=== PATIENT | male | born 1995 | race Caucasian/White ===

== ENCOUNTER 2019-09-03 13:44 | Inpatient (IN) | payer MEDICAID ==
[~2019-09-03] VITALS: Ht 165.1 cm; Wt 57.6 kg
--- NOTE | 2019-09-03 13:44 | NUR ---
PT ANNA ALS AND PLACED IN BED 4.
[2019-09-03 13:58] VITALS: BP 107/89
[2019-09-03] MEDS ORDERED: NACL 0.9% 1,000 ML IV ONE (14:10)
--- NOTE | 2019-09-03 14:15 | NUR ---
PATIENT PRESENTS TO ED WITH C/O CP AND SOB X1 DAY. PT DESCRIBES CP SQUEEZING @ 6/10 PAIN. DENIES N/V/D; SKIN IS PINK/WARM/DRY; AAOX4 WITH EVEN AND STEADY GAIT; LUNGS CLEAR BL; HR @ 105 BPM; PT DENIES ANY FEVER, OR COUGH AT THIS TIME; PATIENT STATES CHEST PAIN OF 6/10 AT THIS TIME; PATIENT POSITIONED FOR COMFORT; HOB ELEVATED; BEDRAILS UP X2; BED DOWN. ER SAW PT.
--- NOTE | 2019-09-03 15:04 | NUR ---
LAB AT BEDSIDE
[2019-09-03 15:22] LABS: BASOPHILS % (AUTO) 0.2 % (0.0-2.0); EOSINOPHILS % (AUTO) 0.3 % (0.0-4.0); HEMATOCRIT 47.9 % (36-52); HEMOGLOBIN 16.5 g/dL (12.0-18.0); LYMPHOCYTES % (AUTO) 8.9 % (20.5-51.1); MEAN CORPUSCULAR HEMOGLOBIN 31 pg (27-31); MEAN CORPUSCULAR HGB CONC 35 g/dL (33-37); MONOCYTES # (AUTO) 0.8 K/uL (0.8-1.0); MONOCYTES % (AUTO) 6.9 % (1.7-9.3); NEUTROPHILS # (AUTO) 9.7 K/uL (1.8-7.7); NEUTROPHILS % (AUTO) 83.7 % (42.2-75.2); PLATELET COUNT (AUTO) 219 K/uL (140-450); RED BLOOD CELL COUNT(AUTO) 5.38 MIL/uL (4.20-6.10); RED CELL DISTRIBUTION WIDTH 13.5 % (11.6-13.7); WHITE BLOOD COUNT (AUTO) 11.6 K/uL (4.8-10.8)
[2019-09-03 15:25] LABS: ANION GAP 16.4 (8-16); POTASSIUM 3.4 mmol/L (3.5-5.1)
[2019-09-03 15:31] LABS: ALBUMIN 4.8 g/dL (3.4-5.0); TOTAL BILIRUBIN 0.7 mg/dL (0.0-1.0)
[2019-09-03] MEDS ORDERED: MORPHINE SULFATE 4 MG/ML SYR IVP ONE ×2 (17:25→18:40)
[2019-09-03] MEDS ORDERED: LORazepam 2 MG/ML VIAL IVP ONE ×2 (17:25→18:00)
[2019-09-03] MEDS ORDERED: ACETAMINOPHEN 325 MG TAB PO PRN (18:05)
[2019-09-03] MEDS ORDERED: DOCUSATE SODIUM 100 MG GELCAP PO PRN (18:05)
[2019-09-03] MEDS ORDERED: HYDROcodone/APAP 7.5/325 MG 1 TAB PO PRN (18:05)
[2019-09-03] MEDS ORDERED: MORPHINE SULFATE 2 MG/ML SYR IVP PRN (18:05)
[2019-09-03] MEDS ORDERED: ONDANSETRON 4 MG/2 ML VIAL IM/IVP PRN (18:05)
--- NOTE | 2019-09-03 18:26 | NUR ---
PT UNABLE TO PRODUCE URINE AT THIS TIME.
[2019-09-03] MEDS ORDERED: NITROGLYCERIN 0.4 MG TAB SL PRN (18:40)
[2019-09-03 18:45] LABS: MAGNESIUM 1.5 mg/dL (1.8-2.4); THYROID STIMULATING HORMONE 3.11 uIU/mL (0.34-3.74)
[2019-09-03 19:08] LABS: PROTHROMBIN TIME 10.2 secs (10.8-13.4)
--- NOTE | 2019-09-03 19:15 | NUR ---
PT LEFT TO CT VIA W/C
[2019-09-03 19:26] LABS: BARBITURATE, URINE NEG. ng/ml (NEG <=200); BENZODIAZEPINE, URINE NEG. ng/mL (NEG <=200); CANNABINOID, URINE NEG. ng/mL (NEG <=50); COCAINE, URINE NEG. ng/mL (NEG <=300); OPIATE, URINE POS. ng/mL (NEG <=2000); PHENCYCLIDINE SCREEN,URINE NEG. ng/mL (NEG <=25)
--- NOTE | 2019-09-03 19:38 | NUR ---
REPORT GIVEN TO JEROMY BURCH. ALL CARE TRANSFERRED AT THIS TIME.
[2019-09-03] MEDS ORDERED: MAG SULF 2000 MG/WATER PREMIX 100 ML IV SCH (20:00)
--- NOTE | 2019-09-03 20:00 | NUR ---
PT RESTING IN BED. VSS. WILL CONTINUE TO MONITOR.
--- NOTE | 2019-09-03 20:39 | NUR ---
PT ARRIVED AT UNIT VIA GURNEY, AMBULATED TO BED, TOLERATED WELL, REPORT RECEIVED FROM ED NURSE MARCIN RN, PT BELONGINGS CHECKED, PT ON ROOM AIR, NO SOB NOTED, IV TO L AC 22G PATENT INTACT, SL, PT STATED HAVING TOLERABLE PAIN AT THIS MOMENT, ORIENT PT TO ROOM, BED, CALL LIGHT, PT FAMILY AT BEDSIDE, INITIAL ASSESSMENT DONE, ALL SAFETY PRECAUTION MET, CALL LIGHT WITHIN REACH, WILL CONTINUE TO MONITOR.
--- NOTE | 2019-09-03 20:40 | NUR ---
TRANSFER OF CARE AND REPORT GIVEN TO JEROMY CHENG
--- NOTE | 2019-09-03 20:42 | NUR ---
Patient will be admitted to care of DR. CARDOSO. Admited to TELEMETRY. Will go to room 125A. Belongings list completed. Report to JEROMY CHENG.
[2019-09-03 21:00] VITALS: BP 139/83
[2019-09-03] MEDS: METOPROLOL 25 MG TAB PO SCH (21:32)
--- NOTE | 2019-09-03 21:32 | NUR ---
DUE MEDICATION ADMINISTERED, PT STATED HAVING CHEST PAIN 5/10, MEDICATION PER DR ORDERED ADMINISTERED, PT TOLERATED WELL, PT RESTING, NO DISTRESS NOTED, CALL LIGHT WITHIN REACH, WILL CONTINUE TO MONITOR.
[2019-09-03] MEDS: NACL 0.9% 1,000 ML IV SCH (21:43)
[2019-09-03] MEDS ORDERED: INFLUENZA VACCINE QUAD 0.5 ML SYR IMVAC PRN (22:20)
--- NOTE | 2019-09-03 23:16 | NUR ---
PT RESTING, V/S TAKEN, WNL, CALL LIGHT WITHIN REACH, WILL CONTINUE TO MONITO.
[2019-09-03 23:55] LABS: APPEARANCE,URINE CLEAR (CLEAR); BILIRUBIN,URINE NEGATIVE (NEGATIVE); BLOOD, URINE NEGATIVE (NEGATIVE); COLOR,URINE YELLOW (YELLOW); LEUKOCYTE ESTERASE ,URINE NEGATIVE (NEGATIVE); NITRITE, URINE NEGATIVE (NEGATIVE); UGLUCOSE NEGATIVE (NEGATIVE)
[2019-09-04] VITALS: BP 137/73
--- NOTE | 2019-09-04 01:56 | NUR ---
PT STATED HAVING TROUBLE SLEEPING, DR. GOODRICH NOTIFIED PT STATED WANTS TO TAKE SOMETHING TO HELP HIM SLEEP, MEDICATION PER DR ORDERED ADMINISTERED, PT TOLERATED WELL, NO DISTRESS NOTED, CALL LIGHT WITHIN REACH, WILL CONTINUE TO MONITOR.
[2019-09-04] MEDS ORDERED: ZOLPIDEM 10 MG TAB PO SCH (02:00)
[2019-09-04 04:00] VITALS: BP 107/63
[2019-09-04] MEDS: NACL 0.9% 1,000 ML IV SCH ×2 (04:02→12:35)
--- NOTE | 2019-09-04 04:18 | NUR ---
PT SLEEPING, NO DISTRESS NOTED, V/S TAKEN, WNL, CALL LIGHT WITHIN REACH, WILL CONTINUE TO MONITOR.
[2019-09-04 06:55] LABS: BASOPHILS % (AUTO) 0.2 % (0.0-2.0); EOSINOPHILS # (AUTO) 0.1 K/uL (0-0.4); EOSINOPHILS % (AUTO) 1.5 % (0.0-4.0); HEMATOCRIT 45.4 % (36-52); HEMOGLOBIN 15.6 g/dL (12.0-18.0); LYMPHOCYTES # (AUTO) 1.5 K/uL (2.0-11.5); LYMPHOCYTES % (AUTO) 18.5 % (20.5-51.1); MEAN CORPUSCULAR HEMOGLOBIN 31 pg (27-31); MEAN CORPUSCULAR HGB CONC 34 g/dL (33-37); MEAN CORPUSCULAR VOLUME 90.8 fL (80-94); MONOCYTES # (AUTO) 0.6 K/uL (0.8-1.0); MONOCYTES % (AUTO) 8.1 % (1.7-9.3); NEUTROPHILS # (AUTO) 5.6 K/uL (1.8-7.7); NEUTROPHILS % (AUTO) 71.7 % (42.2-75.2); PLATELET COUNT (AUTO) 160 K/uL (140-450); RED CELL DISTRIBUTION WIDTH 14.2 % (11.6-13.7); WHITE BLOOD COUNT (AUTO) 7.9 K/uL (4.8-10.8)
[2019-09-04 07:14] LABS: ANION GAP 12.8 (8-16); CARBON DIOXIDE 27.3 mmol/L (21-32); CREATININE 0.9 mg/dL (0.7-1.3); POTASSIUM 4.1 mmol/L (3.5-5.1)
--- NOTE | 2019-09-04 07:18 | NUR ---
RECEIVED BEDSIDE REPORT FROM FUEL EFFICIENT AUTOMOBILE DESIGNER NURSE. PT IS AWAKE AND ALERT, NO C/O CHEST PAIN OR SOB. PT IS ON ROOM AIR, SKIN INTACT. IV SITE L AC 22 G, INFUSING NS 100 ML/HR. PT IS AMBULATORY AND ABLE TO MAKE NEEDS KNOWN. CALL LIGHT WITHIN REACH. WILL CONTINUE TO MONITOR.
--- NOTE | 2019-09-04 07:21 | NUR ---
ENDORSED PT TO DAY SHIFT NURSE BASHIR RN, PT STABLE, NO DISTRESS NOTED, CALL LIGHT WITHIN REACH.
[2019-09-04 07:22] LABS: MAGNESIUM 2.4 mg/dL (1.8-2.4); PHOSPHORUS 3.9 mg/dL (2.5-4.9)
[2019-09-04 07:23] LABS: CHOL/HDL RATIO 3.4 (1-4.5)
[2019-09-04 08:00] VITALS: BP 135/85
--- NOTE | 2019-09-04 08:53 | NUR ---
PT C/O CHEST PAIN AND SOB, VS CHECKED, ALL STABLE, O2 SAT IS 100% ON RA, BP ELEVATED AT 149/86, UP FROM 135/[address] CATALAN ASSESSED THE PT, SHE BELIEVES IT'S RELATED TO ALCOHOL WITHDRAWAL ANXIETY. WILL CONTINUE TO MONITOR THE PT. ROUTE CLERK CONSULT ALSO PENDING.
[2019-09-04] MEDS: chlordiazePOXIDE 25 MG CAP PO SCH ×3 (09:10→17:33)
[2019-09-04] MEDS: ASPIRIN 81 MG TAB.CHEW PO SCH (09:10)
[2019-09-04] MEDS: LORazepam 1 MG TAB PO PRN ×2 (09:11→21:47)
[2019-09-04] MEDS: THIAMINE 100 MG TAB PO SCH (09:11)
[2019-09-04] MEDS: LISINOPRIL 5 MG TAB PO SCH (09:11)
[2019-09-04] MEDS: FOLIC ACID 1 MG TAB PO SCH (09:11)
[2019-09-04] MEDS: ATORVASTATIN 20 MG TAB PO SCH (09:12)
[2019-09-04] MEDS: METOPROLOL 25 MG TAB PO SCH ×2 (09:12→20:42)
[2019-09-04] MEDS: MULTIVITAMIN 1 TAB PO SCH (09:12)
--- NOTE | 2019-09-04 09:24 | NUR ---
AM MEDS ADMINISTERED, PT TOLERATED WELL, ADMINISTERED THE PRN ATIVAN FOR ANXIETY. PT'S RELATIVES VISITING AT BEDSIDE.
[2019-09-04 12:00] VITALS: BP 112/66
--- NOTE | 2019-09-04 14:56 | NUR ---
DC [age] YRS OLD MALE WAS ADMITTED FROM HOME A/OX4 WITH A DX OF CHEST PAIN . PT HAS NO MEDICAL HX . USING METH AND DRINKING ALCOHOL. ELEVATED TROPONIN 0.024 AND 0.040 . STARTED [facility] ,[address] CT ANGIO NEGATIVE FOR AORTIC DISSECTION. CONSULTING WITH NAIL CUTTER AND DC PLAN TO GO BACK HOME WHEN STABLE. CM TO FOLLOW.
--- NOTE | 2019-09-04 15:45 | NUR ---
PT VISITING WITH FAMILY, NO S/S OF DISTRESS.
[2019-09-04 16:00] VITALS: BP 109/64
--- NOTE | 2019-09-04 16:07 | NUR ---
Patient has been screened and categorized as Moderate Nutrition Risk. Patient will be seen within 3-5 days of admit date. 09/06/19 - 09/08/19 Saad Carpio MBA, RD
--- NOTE | 2019-09-04 19:20 | NUR ---
PT ENDORSED TO CONTINUOUS ABSORPTION PROCESS OPERATOR NURSE IN STABLE CONDITION.
[2019-09-04 20:00] VITALS: BP 102/62
--- NOTE | 2019-09-04 21:51 | NUR ---
S/E BY CRISTOBAL DUE TO PT. C/O - ATIVAN P.O GIVEN.
--- NOTE | 2019-09-04 22:00 | NUR ---
MADE ROUNDS , COMFORTABLY RESTING ON BED HE SAID THE SOB SEEMS REDUCED. WILL CONT TO MONITOR - CALL LIGHT WITHIN REACH.
[2019-09-05] VITALS: BP 108/60
[2019-09-05] MEDS: NACL 0.9% 1,000 ML IV SCH (01:08)
[2019-09-05 04:00] VITALS: BP 111/60
[2019-09-05 06:38] LABS: BASOPHILS % (AUTO) 0.3 % (0.0-2.0); EOSINOPHILS # (AUTO) 0.3 K/uL (0-0.4); EOSINOPHILS % (AUTO) 4.3 % (0.0-4.0); HEMATOCRIT 43.6 % (36-52); HEMOGLOBIN 14.9 g/dL (12.0-18.0); LYMPHOCYTES # (AUTO) 1.3 K/uL (2.0-11.5); LYMPHOCYTES % (AUTO) 20.4 % (20.5-51.1); MEAN CORPUSCULAR HEMOGLOBIN 31 pg (27-31); MEAN CORPUSCULAR HGB CONC 34 g/dL (33-37); MEAN CORPUSCULAR VOLUME 91.3 fL (80-94); MONOCYTES # (AUTO) 0.5 K/uL (0.8-1.0); MONOCYTES % (AUTO) 7.4 % (1.7-9.3); NEUTROPHILS # (AUTO) 4.3 K/uL (1.8-7.7); NEUTROPHILS % (AUTO) 67.6 % (42.2-75.2); PLATELET COUNT (AUTO) 122 K/uL (140-450); RED BLOOD CELL COUNT(AUTO) 4.78 MIL/uL (4.20-6.10); RED CELL DISTRIBUTION WIDTH 13.6 % (11.6-13.7); WHITE BLOOD COUNT (AUTO) 6.4 K/uL (4.8-10.8)
[2019-09-05 07:00] LABS: ANION GAP 13.3 (8-16); CARBON DIOXIDE 25.8 mmol/L (21-32); CREATININE 0.8 mg/dL (0.7-1.3); POTASSIUM 4.1 mmol/L (3.5-5.1)
[2019-09-05 07:05] LABS: MAGNESIUM 1.7 mg/dL (1.8-2.4); PHOSPHORUS 2.7 mg/dL (2.5-4.9)
--- NOTE | 2019-09-05 07:36 | NUR ---
Received report from awake overnight counselor nurse. Pt is in stable condition. Call light in reach.
[2019-09-05] MEDS ORDERED: LIB25 PO (07:46)
[2019-09-05 08:00] VITALS: BP 116/61
[2019-09-05] MEDS ORDERED: MAGNESIUM OXIDE 400 MG TAB PO SCH (08:20)
[2019-09-05] MEDS: LISINOPRIL 5 MG TAB PO SCH (09:07)
[2019-09-05] MEDS: THIAMINE 100 MG TAB PO SCH (09:07)
[2019-09-05] MEDS: MULTIVITAMIN 1 TAB PO SCH (09:07)
[2019-09-05] MEDS: METOPROLOL 25 MG TAB PO SCH (09:08)
[2019-09-05] MEDS: ASPIRIN 81 MG TAB.CHEW PO SCH (09:08)
[2019-09-05] MEDS: FOLIC ACID 1 MG TAB PO SCH (09:08)
[2019-09-05] MEDS: ATORVASTATIN 20 MG TAB PO SCH (09:08)
[2019-09-05] MEDS: chlordiazePOXIDE 25 MG CAP PO SCH (09:10)
--- NOTE | 2019-09-05 09:19 | NUR ---
Heparin SubQ not given. Plt at 122. Informed Dr Fallon.
--- NOTE | 2019-09-05 13:00 | NUR ---
Pt was discharged today. Pt was in stable condition at the time of discharge. Pt walked with a steady gait at time of discharge. Pt was accompanied by father to his car. Pt's belongings with patient. Pt's skin intact. Pt's IV line was removed. Catheter intact. No bleeding from site. Pt discharge instructions given to patient. Pt's prescription given to patient. Pt to follow up with PCP.
== END 2019-09-05 12:25 | disposition home or self-care (01) | DRG 812 ==
LOC: MED 13:44 → MMU 18:04
PROVIDERS: ADMIT General Practice; ATTEND General Practice
DX: T43.621A Poisoning by amphetamines, accidental (unintentional), initial encounter (principal); I21.A1 Myocardial infarction type 2; J84.10 Pulmonary fibrosis, unspecified; R00.0 Tachycardia, unspecified; E83.42 Hypomagnesemia; F10.239 Alcohol dependence with withdrawal, unspecified; R79.89 Other specified abnormal findings of blood chemistry; F15.10 Other stimulant abuse, uncomplicated; E87.6 Hypokalemia; Y92.89 Other specified places as the place of occurrence of the external cause
CPT/HCPCS: 36415; 36600; 71045; 71275; 80048; 80053; 80305; 81003; 82803; 83036; 83735; 83880; 84100; 84443; 84484; 85025; 85379; 85610; 85730; 87081; 93005; 96361; 96374; 96375; 96376; 99285; J1644; J2060; J2270; J2405; J3475; J7030; Q0092; Q9967

== ENCOUNTER 2019-09-25 21:37 | Emergency (ER) | payer MEDICAID ==
[~2019-09-25] VITALS: Ht 154.9 cm; Wt 54.4 kg
[~2019-09-25 21:37] MED LIST: LIB25 PO
[2019-09-25 21:46] VITALS: BP 127/87
--- NOTE | 2019-09-25 21:46 | NUR ---
PT TAKEN TO BED 9
--- NOTE | 2019-09-25 21:52 | NUR ---
24 Y/O MALE C/O CHEST PAIN THAT RADIATES TO ABD X3 DAYS. PT STATES NAUSEA, DENIES V/D. 8/10 SHARP PAIN. PT STATES MILD SOB, PT ABLE TO SPEAK IN FULL SENTENCES, RR EVEN AND UNLABORED. NO ACCESSORY MUSCLE USE. PT SITTING IN BED CALM AND PLEASANT. PT STATES HX OF METH USE. LAST USED X1 MO AGO PER PT. VSS. MEDHX: DENIES ALLERGIES: NKA
--- NOTE | 2019-09-25 22:01 | NUR ---
Dr. Givens examining patient.
[2019-09-25] MEDS ORDERED: KETOROLAC 60 MG/2 ML VIAL IM ONE (22:05)
--- NOTE | 2019-09-25 22:25 | NUR ---
PT STATES RELIEF OF PAIN AFTER BEING MEDICATED. 0/10 PAIN.
[2019-09-25 22:31] VITALS: BP 127/87
== END 2019-09-25 22:32 | disposition home or self-care (01) ==
LOC: MED 21:37
DX: R07.89 Other chest pain (principal); F15.10 Other stimulant abuse, uncomplicated
CPT/HCPCS: 93005; 96372; 99283; J1885